=== PATIENT | female | born 1990 | race Two or more races ===

== ENCOUNTER 2024-09-07 22:38 | Emergency (ER) | payer OTHER ==
[~2024-09-07] VITALS: Ht 152.4 cm; Wt 90.7 kg
[2024-09-07] MEDS ORDERED: LEVOTHYROXINE25 MCG (23:05)
[2024-09-08] MEDS ORDERED: KETOROLAC TROMETHAMINE 30 MG VIAL IV STA (00:31)
[2024-09-08 01:31] LABS: BASO % 0.4 % (0.1-1.2); EOS # 0.04 (0.04-0.54); EOS % 0.5 % (0.7-7.0); LYMPH # 2.26 (1.18-3.74); LYMPH % 28.6 % (19.3-53.1); MEAN PLATELET VOLUME 10.50 fl (9.4-12.4); MONO # 0.35 (0.24-0.82); MONO % 4.4 % (4.7-12.5); NEUT # 5.22 (1.56-6.13); NEUT % 66.0 % (34.0-71.1); RED CELL DISTRIBUTION WIDTH 18.1 % (11.6-14.4)
[2024-09-08 01:58] LABS: BUN CREA RATIO 13 (7.0-25.0); CREATININE SERUM 0.86 mg/dL (0.55-1.02); GFR 75.99; GLUCOSE FASTING 82 mg/dL (65-100); OSMOLALITY SERUM 282 MOSM/KG (275-295)
[2024-09-08 02:00] LABS: HCG QUANTITATIVE < 1 mUI/mL (1-3)
== END 2024-09-08 06:53 ==
LOC: ER 22:38
PROVIDERS: General Practice
DX: R55 Syncope and collapse (principal); G43.809 Other migraine, not intractable, without status migrainosus